=== PATIENT | male | born 2000 ===

== ENCOUNTER 2019-06-06 19:30 | Emergency (ER) | payer OTHER ==
[~2019-06-06] VITALS: Ht 170.2 cm; Wt 56.8 kg
[2019-06-06] MEDS ORDERED: PROPARACAINE HCL 0.5% 15 ML OPHTHALMIC SOLUTION OS ONE (20:30)
[2019-06-06 20:45] VITALS: BP 119/77
[2019-06-06] MEDS ORDERED: TOBRAMYCIN/DEXAMETHASONE 5 ML OPHTHALMIC SUSPENSION OD ONE (21:30)
== END 2019-06-06 21:50 | disposition home or self-care (01) ==
LOC: EMS 19:36
DX: T26.51XA Corrosion of right eyelid and periocular area, initial encounter (principal); Z88.8 Allergy status to other drugs, medicaments and biological substances; W20.8XXA Other cause of strike by thrown, projected or falling object, initial encounter; Y93.89 Activity, other specified; Y92.89 Other specified places as the place of occurrence of the external cause; Y99.0 Civilian activity done for income or pay